=== PATIENT | male | born 1980 | race Caucasian/White ===

== ENCOUNTER 2017-08-24 01:19 | Emergency (ER) | payer SELFPAY, OTHER | END 2017-08-24 02:00 | disposition home or self-care (01) | LOC: FTE 01:19 | DX: T16.1XXA Foreign body in right ear, initial encounter (principal); F17.210 Nicotine dependence, cigarettes, uncomplicated; X58.XXXA Exposure to other specified factors, initial encounter; Y92.9 Unspecified place or not applicable | CPT/HCPCS: 69200; 99283-25 ==